=== PATIENT | female | born 1970 | race Caucasian/White ===

== ENCOUNTER 2019-04-06 22:56 | Emergency (ER) | payer BC ==
[~2019-04-06] VITALS: Ht 172.7 cm; Wt 96.2 kg
[~2019-04-06 22:56] MED LIST: CYCL-1 PO; IBUP-1984 PO; VALS160T2 PO
[2019-04-06 22:59] VITALS: BP 122/91
--- NOTE | 2019-04-07 00:42 | NUR ---
PT NOT IN ROOM, HA PLACED TO NUMBER ON FILE. SPOKE WITH "KENISHA" SHE REPORTS THAT SHE WAS UNHAPPY WITH HER CARE AND LEFT. SHE WILL F/U WITH HER PMD IN AM. DR. GARZA INFORMED.
== END 2019-04-07 00:42 | disposition left against medical advice (07) ==
LOC: ER 22:57
DX: M54.6 Pain in thoracic spine (principal); Z53.21 Procedure and treatment not carried out due to patient leaving prior to being seen by health care provider

== ENCOUNTER 2019-12-16 19:09 | Emergency (ER) | payer BC ==
[~2019-12-16] VITALS: Ht 172.7 cm; Wt 78.0 kg
[2019-12-16] MEDS ORDERED: ibuprofen 200mg tablet PO ONE (21:10)
[2019-12-16] MEDS ORDERED: TAM75C PO (21:45)
[2019-12-16] MEDS ORDERED: acetaminophen 325mg tablet PO ONE (22:00)
[2019-12-16 22:15] VITALS: BP 139/81
--- NOTE | 2019-12-16 22:23 | NUR ---
awaiting to re-take pt temp after tylenol has time to work
== END 2019-12-16 22:51 | disposition home or self-care (01) ==
LOC: ER 19:09
DX: J11.1 Influenza due to unidentified influenza virus with other respiratory manifestations (principal); G43.909 Migraine, unspecified, not intractable, without status migrainosus; I10 Essential (primary) hypertension; K21.9 Gastro-esophageal reflux disease without esophagitis; Z98.890 Other specified postprocedural states; Z90.49 Acquired absence of other specified parts of digestive tract; Z79.899 Other long term (current) drug therapy
CPT/HCPCS: 71046; 87502; 87503; 99284

== ENCOUNTER 2021-02-07 21:57 | Emergency (ER) | payer BC | END 2021-02-07 23:16 | disposition left against medical advice (07) | LOC: ER 21:58 | DX: R10.10 Upper abdominal pain, unspecified (principal); Z53.21 Procedure and treatment not carried out due to patient leaving prior to being seen by health care provider ==

== ENCOUNTER 2021-02-09 13:24 | Observation (INO) | payer BC ==
[~2021-02-09] VITALS: Ht 170.2 cm; Wt 77.3 kg
[2021-02-09 14:33] LABS: BASOPHILS % (AUTO) 0.2 % (0-1); EOSINOPHILS # (AUTO) 0.1 X10'3 (0-0.9); EOSINOPHILS % (AUTO) 1.7 % (0-6); HEMATOCRIT 46.3 % (35.0-45.0); HEMOGLOBIN 15.7 g/dl (12.0-16.0); LYMPHOCYTES # (AUTO) 2.1 X10'3 (1.1-4.8); LYMPHOCYTES % (AUTO) 26.4 % (21-51); MEAN CORPUSCULAR HEMOGLOBIN 29.7 PG (27.0-31.0); MEAN CORPUSCULAR HGB CONC 33.9 g/dL (33.0-36.5); MEAN CORPUSCULAR VOLUME 87.7 FL (78-98); MEAN PLATELET VOLUME 8.6 FL (7.4-10.4); MONOCYTES # (AUTO) 0.8 X10'3 (0-0.9); MONOCYTES % (AUTO) 9.9 % (2-12); NEUTROPHILS # (AUTO) 4.8 X10'3 (1.8-7.7); NEUTROPHILS % (AUTO) 61.8 % (42-75); PLATELET COUNT 231 X10'3 (140-440); RED BLOOD COUNT 5.28 X10'6 (4.20-5.60); RED CELL DISTRIBUTION WIDTH 12.5 % (11.5-14.5); WHITE BLOOD COUNT 7.8 X10'3 (4.5-11.0)
[2021-02-09 15:16] LABS: ALANINE AMINOTRANSFERASE 29 U/L (12-78); ALBUMIN 4.3 G/DL (3.4-5.0); ALBUMIN/GLOBULIN RATIO 1.3 (1.1-1.5); ALKALINE PHOSPHATASE 78 IU/L (46-116); ANION GAP 11 (8-16); ASPARTATE AMINO TRANSFERASE 18 U/L (10-37); BILIRUBIN,TOTAL 0.7 MG/DL (0.1-1.0); BLOOD UREA NITROGEN 19 MG/DL (7-18); BUN/CREATININE RATIO 22.1 (6.6-38.0); CALCIUM 9.6 MG/DL (8.5-10.1); CHLORIDE 106 MMOL/L (99-107); CREATININE 0.86 MG/DL (0.40-0.90); GLUCOSE 103 MG/DL (70-104); POTASSIUM 3.9 MMOL/L (3.5-5.1); SODIUM 145 MMOL/L (135-145); TOTAL CARBON DIOXIDE 28.4 MMOL/L (24-32); TOTAL PROTEIN 7.7 G/DL (6.4-8.2); eGFR 70 ML/MIN
[2021-02-09] MEDS ORDERED: aspirin 81mg tab.chew PO ONE (15:20)
[2021-02-09] MEDS: nitroGLYCERIN 0.4mg SUBLingual tab SL PRN ×2 (15:52→21:30)
[2021-02-09] MEDS ORDERED: metoprolol tartrate 1mg/ml inj IV ONE (16:30)
[2021-02-09] MEDS ORDERED: LEVO100T78 PO (16:45)
[2021-02-09] MEDS ORDERED: CARV25TA2 PO (17:00)
[2021-02-09] MEDS ORDERED: magnesium 4gm in 100ml NS 100 ML IV PRN (17:15)
[2021-02-09] MEDS ORDERED: mag hydrox/Alum hydrox/simeth 30ml oral suspension PO PRN (17:15)
[2021-02-09] MEDS ORDERED: potassium Cl 40MEQ/1/2NS 520ml 520 ML IV PRN ×2 (17:15)
[2021-02-09] MEDS ORDERED: magnesium hydroxide 30ml (MOM) UD suspension PO PRN (17:15)
[2021-02-09] MEDS ORDERED: ondansetron/PF 4mg/2ml inj IV PRN (17:15)
[2021-02-09] MEDS ORDERED: HYDROcodone/acetaminophen 10/325mg tab PO PRN (17:15)
[2021-02-09] MEDS ORDERED: HYDROcodone/acetaminophen 5mg/325mg tablet PO PRN (17:15)
[2021-02-09] MEDS ORDERED: potassium Cl 20 mEq SR tablet PO PRN (17:15)
[2021-02-09] MEDS ORDERED: magnesium 2GM in 50ml NS 50 ML IV PRN (17:15)
[2021-02-09] MEDS ORDERED: acetaminophen 325mg tablet PO PRN (17:15)
[2021-02-09] MEDS ORDERED: regadenoson 0.4mg/5ml syringe IV ONE (17:20)
[2021-02-09] MEDS ORDERED: nitroGLYCERIN 0.4mg SUBLingual tab SL PRN (17:20)
[2021-02-09] MEDS ORDERED: aminophylline 250mg/10ml inj. IV PRN (17:20)
[2021-02-09] MEDS ORDERED: metoprolol tartrate 1mg/ml inj IV PRN (17:20)
[2021-02-09] MEDS: normal saline 1000ml 1,000 ML IV SCH (18:43)
[2021-02-09] MEDS: K and/or MAG REPLACEMENT MC SCH (20:00)
[2021-02-09] MEDS ORDERED: enoxaparin 40mg/0.4ml syringe SQ SCH (20:00)
[2021-02-09] MEDS ORDERED: carVEDilol 12.5mg tablet PO SCH (21:00)
[2021-02-09 22:00] VITALS: BP 147/88
[2021-02-10] VITALS (12 sets, daily range): BP systolic 132–182; BP diastolic 77–91
--- NOTE | 2021-02-10 02:50 | NUR ---
Paged Dr. Meza. PAGER ID: [phone] MESSAGE: Pt in rm [id number] Negin Cerda Dx : CP is asking for Tramadol for back pain; [place] makes her feel itchy. Pt denied CP. Thanks! Edwina x [phone]
[2021-02-10] MEDS ORDERED: traMADol 50MG tablet PO PRN (02:55)
[2021-02-10] MEDS: normal saline 1000ml 1,000 ML IV SCH (03:01)
[2021-02-10 03:05] LABS: ALANINE AMINOTRANSFERASE 21 U/L (12-78); ALBUMIN 3.5 G/DL (3.4-5.0); ALBUMIN/GLOBULIN RATIO 1.2 (1.1-1.5); ALKALINE PHOSPHATASE 66 IU/L (46-116); ANION GAP 7 (8-16); ASPARTATE AMINO TRANSFERASE 11 U/L (10-37); BILIRUBIN,TOTAL 0.5 MG/DL (0.1-1.0); BLOOD UREA NITROGEN 17 MG/DL (7-18); BUN/CREATININE RATIO 21.5 (6.6-38.0); CALCIUM 8.8 MG/DL (8.5-10.1); CHLORIDE 106 MMOL/L (99-107); CREATININE 0.79 MG/DL (0.40-0.90); GLUCOSE 99 MG/DL (70-104); POTASSIUM 3.3 MMOL/L (3.5-5.1); SODIUM 142 MMOL/L (135-145); TOTAL CARBON DIOXIDE 28.7 MMOL/L (24-32); TOTAL PROTEIN 6.4 G/DL (6.4-8.2); eGFR 77 ML/MIN
[2021-02-10 03:09] LABS: CHOL/HDL RATIO 4.3 (0.00-4.99); CHOLESTEROL 187 MG/DL (0-200); HDL CHOLESTEROL 44 MG/DL (35-60); LDL CHOLESTEROL 121 MG/DL (50-100); MAGNESIUM 2.2 MG/DL (1.5-2.4); TRIGLYCERIDES 145 MG/DL (20-135)
[2021-02-10 03:10] LABS: BASOPHILS % (AUTO) 0.3 % (0-1); EOSINOPHILS # (AUTO) 0.1 X10'3 (0-0.9); EOSINOPHILS % (AUTO) 1.7 % (0-6); HEMATOCRIT 40.6 % (35.0-45.0); HEMOGLOBIN 13.9 g/dl (12.0-16.0); LYMPHOCYTES # (AUTO) 2.8 X10'3 (1.1-4.8); LYMPHOCYTES % (AUTO) 33.9 % (21-51); MEAN CORPUSCULAR HEMOGLOBIN 29.8 PG (27.0-31.0); MEAN CORPUSCULAR HGB CONC 34.3 g/dL (33.0-36.5); MEAN CORPUSCULAR VOLUME 86.9 FL (78-98); MEAN PLATELET VOLUME 8.8 FL (7.4-10.4); MONOCYTES # (AUTO) 0.9 X10'3 (0-0.9); MONOCYTES % (AUTO) 10.9 % (2-12); NEUTROPHILS # (AUTO) 4.4 X10'3 (1.8-7.7); NEUTROPHILS % (AUTO) 53.2 % (42-75); PLATELET COUNT 188 X10'3 (140-440); RED BLOOD COUNT 4.67 X10'6 (4.20-5.60); RED CELL DISTRIBUTION WIDTH 12.3 % (11.5-14.5); WHITE BLOOD COUNT 8.2 X10'3 (4.5-11.0)
[2021-02-10] MEDS: potassium Cl 20 mEq SR tablet PO PRN ×2 (03:20→12:37)
--- NOTE | 2021-02-10 06:10 | NUR ---
Problems reprioritized. Patient report given, questions answered & plan of care reviewed with Michelle Ahn RN.
--- NOTE | 2021-02-10 06:41 | NUR ---
Patient in room PCU 3017. I have received report from Marcella LYNCH and had the opportunity to ask questions and assume patient care.
[2021-02-10] MEDS ORDERED: levoTHYROXINE 100mcg tablet PO SCH (07:00)
[2021-02-10] MEDS: K and/or MAG REPLACEMENT MC SCH (08:00)
[2021-02-10] MEDS ORDERED: regadenoson 0.4mg/5ml syringe IV ONE (08:00)
[2021-02-10] MEDS ORDERED: aminophylline 250mg/10ml inj. IV PRN (08:00)
[2021-02-10] MEDS ORDERED: atorvastatin 20mg tablet PO SCH (09:40)
--- NOTE | 2021-02-10 11:35 | NUR ---
Dr. Lim paged PAGER ID: [phone] MESSAGE: Re: Negin Cerda RM [id number]. Pt is in room c/o heart burn. May we have PRN for Pepcid or tums? Please Advise. Thank you Michelle LYNCH [phone]
--- NOTE | 2021-02-10 12:03 | NUR ---
Dr. Lim responded to page. New order to add Pepcid to help indigesting PRN. Thank you
[2021-02-10] MEDS ORDERED: famotidine 20mg tablet PO PRN (12:05)
--- NOTE | 2021-02-10 12:45 | NUR ---
Dr. Lim at bedside with patient and nurse. explained Stress test results and is OK to discharge with a follow up with PCP in regards to an EGD. Will continue to monitor.
[2021-02-10] MEDS ORDERED: POTA20TA19 PO (12:52)
[2021-02-10] MEDS ORDERED: ATOR20TA66 PO (12:52)
--- NOTE | 2021-02-10 13:26 | NUR ---
Patient OK to discharge per MD orders. Patients items were collected and sent with patient. Patient was educated on the follow up instructions. Medications and follow up routines were gone over and pt was unable to understand. VSS, Tele removed, PIV removed, Pt tolerated well. Patient was able to dress self and gather items. Patient was escorted to the elevators that led to the front main lobby where daughter was waiting for pt.
--- NOTE | 2021-02-11 14:09 | NUR ---
CASE MANAGEMENT DISCHARGE FOLLOW UP: T/c to pt, ana hickmany. Will try again. 1421 T/c to pt, ana serrano. T/c to pt's , Andrews. He states that pt is doing okay, but still in pain. He thinks she may be a little better today. States that pt is really disappointed that she did not get any real answers about what is causing her pain but instead the hospital found more problems. Upon inquiry, not sure if pt picked up OTC Pepcid of Prilosec, advised that MD suspects pain r/t possible GERD and this medication should help with pain r/t reflux. He states he will follow up with pt when he gets home. He is not sure if she was able to get a f/u appointment with her PCP today or not, advised that per MD she should try to get a referral to a GI specialist for possible EGD, he verbalizes understanding. Advised that if pt has further questions for her to please contact hospital and ask to speak to Case Management as this nurse will not be back to her office until next 02/16/21. He states that he has no further questions at this time.
== END 2021-02-10 15:24 | disposition home or self-care (01) ==
LOC: ER 13:24 → ED HOLD 17:13 → INTOOBSV 17:13 → PCU 3S 21:45
PROVIDERS: ADMIT Family Medicine; ATTEND Family Medicine
DX: R07.89 Other chest pain (principal); K21.9 Gastro-esophageal reflux disease without esophagitis; R10.13 Epigastric pain; I10 Essential (primary) hypertension; Z79.899 Other long term (current) drug therapy; E89.0 Postprocedural hypothyroidism; R11.0 Nausea
CPT/HCPCS: 36415; 71045; 78452; 80053; 80061; 83735; 83880; 84484; 85025; 87081; 93005; 93017; 93306; 96372; 96374; 99285; A9500; G0378; J2785; J7030; 93308; J1650; J3490